=== PATIENT | female | born 2000 | race Two or more races ===

== ENCOUNTER 2019-06-13 12:42 | Emergency (ER) | payer OTHER ==
[~2019-06-13] VITALS: Ht 165.1 cm; Wt 63.5 kg
[2019-06-13 13:14] VITALS: BP 103/79
== END 2019-06-13 15:03 | disposition left against medical advice (07) ==
LOC: ER 12:42
DX: R10.2 Pelvic and perineal pain (principal); Z53.21 Procedure and treatment not carried out due to patient leaving prior to being seen by health care provider